=== PATIENT | male | born 1995 | race Caucasian/White ===

== ENCOUNTER 2018-09-05 11:24 | Emergency (ER) | payer MEDICAID ==
[~2018-09-05] VITALS: Ht 175.3 cm; Wt 89.5 kg
[2018-09-05 11:31] VITALS: BP 123/73; Ht 175.3 cm; Wt 89.5 kg
[2018-09-05] MEDS ORDERED: TORADOL10 MG PO (13:09)
== END 2018-09-05 13:27 | disposition home or self-care (01) ==
LOC: D.ER 11:24
DX: R10.11 Right upper quadrant pain (principal)